=== PATIENT | male | born 1965 | race Caucasian/White ===

== ENCOUNTER → 2020-09-05 | Outpatient (CLI) | payer BC ==
[~2020-09-05] MED LIST: ASPIRIN325 MG PO; CRESTOR5 MG PO; CYCLOBENZAPRINE10 MG PO; ECOTRIN81 MG PO; FISH OIL 1,2001 EACH PO; GABAPENTIN800 MG PO; HYDROCHLOROTHIA25 MG PO; LOSARTAN POTAS100 MG PO; NAPROXEN PO; OMEPRAZOLE20 MG PO; SINGULAIR10 MG PO; SOTALOL120 MG PO
== END ==
LOC: HEART 5 11:30
DX: Z51.81 Encounter for therapeutic drug level monitoring (principal); Z79.899 Other long term (current) drug therapy
CPT/HCPCS: 94010; 94729

== ENCOUNTER → 2021-01-18 | Outpatient (CLI) | payer BC | LOC: HEART 5 10:48 | DX: R00.2 Palpitations (principal); R60.9 Edema, unspecified; I08.1 Rheumatic disorders of both mitral and tricuspid valves | CPT/HCPCS: 93306 ==